=== PATIENT | male | born 1995 | race Caucasian/White ===

== ENCOUNTER 2018-07-24 15:22 | Emergency (ER) | payer BC ==
--- NOTE | 2018-07-24 16:15 | EDPHY ---
H & P Stated Complaint: Ski accident 4D [employer], xray today spine Fx. No deficits. Time Seen by Provider: 07/24/18 15:31 HPI/ROS: CHIEF COMPLAINT: Sacral fracture, here for imaging HISTORY OF PRESENT ILLNESS: 23-year-old male presents after a ski injury with sacral pain. He was skiing 4 days ago and fell directly onto his lower back. Immediate onset of moderate pain in the lower back. The pain did not resolve, so he went to [facility] this afternoon. X-ray revealed a sacral fracture. He was sent here for CT scan. No numbness, weakness and no other injuries. REVIEW OF SYSTEMS: complete 10 point ROS negative except as noted in the HPI - Personal History Current Tetanus/Diphtheria Vaccine: Unsure - Medical/Surgical History Hx Asthma: No Hx Chronic Respiratory Disease: No Hx Diabetes: No Hx Cardiac Disease: No Hx Renal Disease: No Hx Cirrhosis: No Hx Alcoholism: No Hx HIV/AIDS: No Hx Splenectomy or Spleen Trauma: No Other PMH: none - Social History Smoking Status: Never smoked Alcohol Use: Sober Drug Use: None - Physical Exam Exam: General Appearance: Alert, pleasant and talkative Head: Atraumatic Eyes: No conjunctival erythema, PERRLA, EOMI ENT, Mouth: no oral trauma, no bony tenderness Neck: Nontender, range of motion without pain Respiratory: No chest wall tenderness, lungs clear bilaterally Cardiovascular: Regular rate and rhythm Abdomen: Abdomen is soft and nontender Skin: No lacerations, no abrasions Back: Point tenderness over the midline sacrum, no thoracic or lumbar tenderness Extremities: Pelvis is stable, no extremity tenderness or deformity, full range of motion without pain Neurological: A&O, normal motor function, normal sensory exam, cranial nerves intact, walks with a steady gait Psychiatric: Mood and affect normal Constitutional: Initial Vital Signs Heart Rate 86 07/24/18 15:25 Respiratory Rate 18 07/24/18 15:25 Blood Pressure 147/82 H 07/24/18 15:25 O2 Sat (%) 95 07/24/18 15:25 O2 Delivery Mode Room Air O2 (L/minute) 37.0 Allergies/Adverse Reactions: No Known Allergies Allergy (Unverified 07/24/18 15:25) Medical Decision Making - Diagnostics Imaging Results: Pelvis CT 07/24/18 15:32 Impression:Angulated and anteriorly displaced S3 fracture and nondisplaced S4 fractures. Does the patient have any sphincter issues? Please see above. Results discussed with Dr. Goode at 5:28 PM. Imaging: Discussed imaging studies w/ call center coordinator Radiologist, I viewed and interpreted images myself ED Course/Re-evaluation: This patient presents with acute sacral fractures. Neurologic exam is normal. CT scan read reveals an angulated and displaced fracture of C3. Discussed with the patient, no problems with bowel or bladder. I consulted Dr. Galdino Leiva who suggested calling [facility] for consultation regarding sacral fractures. I spoke with Dr. Sanchez, neurosurgeon at [facility]. Reviewed clinical presentation, including intermittent groin numbness , and reviewed the CT scan results. He suggests pain control and avoiding working out and sports. No brace or surgery indicated. Suggests follow up in the Spinal clinic at [facility] in 6 weeks. d/w pt and his mother, agree and will f/u at the spine clinic. Differential Diagnosis: includes though not limited to neurologic compromise, hemorrhage, open fracture , intraabd injury. Departure - Departure Disposition: Home, Routine, Self-Care Clinical Impression: Sacral fracture, closed Qualifiers: Encounter type: initial encounter Zone of sacrum fracture: unspecified portion of sacrum Qualified Code(s): S32.10XA - Unspecified fracture of sacrum, initial encounter for closed fracture Condition: Good Instructions: Sacral Fracture (ED) Additional Instructions: I spoke with Dr. Sanchez, the neurosurgeon at [facility]. He requests that you: 1. Avoid working out and sports activities for 8 weeks. 2. Call to make an appointment at the [facility] in 6 weeks. The phone number is [phone] Return for worsening symptoms including weakness, numbness, bowel or bladder incontinence. Take Tylenol 650 mg every 4 hr as needed for pain. Referrals: NONE *PRIMARY CARE P,. [Primary Care Provider] - As per Instructions Stand Alone Forms: Airline Excuse, School Excuse
[2018-07-24 17:20] VITALS: BP 139/81
== END 2018-07-24 18:32 | disposition home or self-care (01) ==
DX: S32.19XA Other fracture of sacrum, initial encounter for closed fracture (principal); V00.321A Fall from snow-skis, initial encounter; Y93.23 Activity, snow (alpine) (downhill) skiing, snowboarding, sledding, tobogganing and snow tubing; Y92.9 Unspecified place or not applicable; Y99.9 Unspecified external cause status

== ENCOUNTER 2018-09-02 08:31 | Emergency (ER) | payer BC ==
[2018-09-02] MEDS ORDERED: ONDANSETRON 4 MG/2 ML VIAL ONE (08:39)
[2018-09-02] MEDS ORDERED: NS 1,000 ML IV ONE (08:45)
[2018-09-02] MEDS ORDERED: PROMETHAZINE HCL 25 MG/ML INJ IVP ONE (08:45)
[2018-09-02 09:03] LABS: PLATELET COUNT 269 10^3/uL (150-400)
--- NOTE | 2018-09-02 10:27 | EDPHY ---
H & P Time Seen by Provider: 09/02/18 08:44 HPI/ROS: Chief complaint. Nausea vomiting HPI. 23-year-old male presents emergency department with nausea vomiting. Symptoms began this morning. He is unable to keep fluids down. Possible bad food exposure as he ate sushi yesterday. No diarrhea. No abdominal pain. No chest pain or shortness of breath. No fever. Some mild achiness. No previous abdominal surgery. ROS 10 systems were reviewed and negative with the exception of the elements mentioned in the history of present illness Past Medical/Surgical History: Healthy Social History: Single, nonsmoker, no alcohol Smoking Status: Never smoked Physical Exam: General Appearance: Alert well-developed male mild distress vital signs are stable Eyes: Pupils equal and round no pallor or injection. ENT, mucous membranes are dry. Pharynx without injection Respiratory: There are no retractions, lungs are clear to auscultation. Cardiovascular: Regular rate and rhythm. Gastrointestinal: Abdomen is soft and nontender, no masses, bowel sounds normal. Neurological: Awake and alert, sensory and motor exams grossly normal. Skin: Warm and dry, no rashes. Musculoskeletal: Neck is supple nontender. Extremities symmetrical, full range of motion. Psychiatric: Patient is oriented X 3, there is no agitation. Constitutional: Initial Vital Signs Temperature (C) 37.3 C 09/02/18 08:35 Heart Rate 75 09/02/18 08:35 Respiratory Rate 16 09/02/18 08:35 Blood Pressure 144/85 H 09/02/18 08:35 O2 Sat (%) 94 09/02/18 08:35 O2 Delivery Mode Room Air Allergies/Adverse Reactions: No Known Allergies Allergy (Unverified 07/24/18 15:25) Home Medications: Medication Instructions Recorded Ondansetron Odt [Zofran Odt] 4 mg PO Q4PRN PRN #4 tab 09/02/18 Ondansetron Odt [Zofran Odt] 4 mg PO Q4PRN PRN #4 tab 09/02/18 Medical Decision Making Procedures: IV normal saline. Zofran IV ED Course/Re-evaluation: On re-evaluation patient feels better. He is taking oral fluids without nausea vomiting. Patient and I discussed treatment plan including criteria for return importance of follow-up and further evaluation. He expresses understanding and agreement Differential Diagnosis: Vomiting possibly be due to bad food exposure. No evidence for acute abdomen. Mild dehydration. - Data Points Laboratory Results: Laboratory Results 09/02/18 08:50 09/02/18 08:50 09/02/18 09/02/18 08:50 08:50 WBC 7.59 10^3/uL 10^3/uL (3.80-9.50) RBC 5.51 10^6/uL 10^6/uL (4.40-6.38) Hgb 16.5 g/dL g/dL (13.7-17.5) Hct 46.4 % % (40.0-51.0) MCV 84.2 fL fL (81.5-99.8) MCH 29.9 pg pg (27.9-34.1) MCHC 35.6 g/dL g/dL (32.4-36.7) RDW 11.7 % % (11.5-15.2) Plt Count 269 10^3/uL 10^3/uL (150-400) MPV 10.6 fL fL (8.7-11.7) Neut % (Auto) 67.4 % % (39.3-74.2) Lymph % (Auto) 23.6 % % (15.0-45.0) [place] % (Auto) 7.1 % % (4.5-13.0) Eos % (Auto) 0.7 % % (0.6-7.6) Baso % (Auto) 0.9 % % (0.3-1.7) Nucleat RBC Rel Count 0.0 % % (0.0-0.2) Absolute Neuts (auto) 5.12 10^3/uL 10^3/uL (1.70-6.50) Absolute Lymphs (auto) 1.79 10^3/uL 10^3/uL (1.00-3.00) Absolute Monos (auto) 0.54 10^3/uL 10^3/uL (0.30-0.80) Absolute Eos (auto) 0.05 10^3/uL 10^3/uL (0.03-0.40) Absolute Basos (auto) 0.07 10^3/uL 10^3/uL (0.02-0.10) Absolute Nucleated RBC 0.00 10^3/uL 10^3/uL (0-0.01) Immature Gran % 0.3 % % (0.0-1.1) Immature Gran # 0.02 10^3/uL 10^3/uL (0.00-0.10) Sodium 139 mEq/L mEq/L (135-145) Potassium 4.1 mEq/L mEq/L (3.5-5.2) Chloride 107 mEq/L mEq/L (97-110) Carbon Dioxide 23 mEq/l mEq/l (22-31) Anion Gap 9 mEq/L mEq/L (6-14) BUN 12 mg/dL mg/dL (7-23) Creatinine 0.9 mg/dL mg/dL (0.7-1.3) Estimated GFR > 60 Glucose 99 mg/dL mg/dL (70-100) Calcium 10.0 mg/dL mg/dL (8.5-10.4) Lipase 40 IU/L IU/L (23-300) Medications Given: Discontinued Medications Sodium Chloride (Ns) 1,000 mls @ 0 mls/hr IV EDNOW ONE; Wide Open PRN Reason: Protocol Stop: 09/02/18 08:46 Last Admin: 09/02/18 08:47 Dose: 1,000 mls Promethazine HCl (Phenergan) 12.5 mg IVP EDNOW ONE Stop: 09/02/18 08:46 Last Admin: 09/02/18 08:49 Dose: 12.5 mg Departure - Departure Disposition: Home, Routine, Self-Care Clinical Impression: Vomiting Qualifiers: Vomiting Intractability: non-intractable Nausea presence: with nausea Condition: Good Instructions: Acute Nausea and Vomiting (ED) Additional Instructions: Frequent, small sips fluids. Gradual diet advancement Zofran if needed for nausea and vomiting Return for worsening symptoms Recheck in 1 day for continuing symptoms Referrals: NONE *PRIMARY CARE P,. [Primary Care Provider] - As per Instructions Prescriptions: Ondansetron Odt [Zofran Odt] 4 mg PO Q4PRN PRN #4 tab PRN Reason: Nausea/Vomiting, Use 1st Ondansetron Odt [Zofran Odt] 4 mg PO Q4PRN PRN #4 tab PRN Reason: Nausea/Vomiting, Use 1st
[2018-09-02 10:38] VITALS: BP 116/78
== END 2018-09-02 10:37 | disposition home or self-care (01) ==
DX: R11.2 Nausea with vomiting, unspecified (principal); E86.9 Volume depletion, unspecified
CPT/HCPCS: 96374; J2405; J2550